=== PATIENT | male | born 1980 | race Hispanic/Latino ===

== ENCOUNTER 2020-01-12 16:08 | Emergency (ER) | payer SELFPAY ==
[~2020-01-12] VITALS: Ht 170.2 cm; Wt 88.0 kg
--- NOTE | 2020-01-12 16:31 | Emergency Department Note ---
History of Present Illnes History of Present Illness Chief Complaint: Chest Pain History of Present Illness This is a 39 year old male arrives to the ED with complaints of a cough . Patient states he is awaiting his Covid 19 resolved and came to the ER because he wanted to be retested. Patient does admit to subjective fevers cough and has been out of side without a mask. Onset (how long ago): day(s) ( ) Severity: mild Onset quality: gradual Duration (how long): day(s) Timing of current episode: constant Progression: waxing and waning Chronicity: new Context: Reports recent illness Past Medical/Family History Physician Review I have reviewed the patient's past medical and family history. Any updates have been documented here. Past Medical History Recent Fever: Yes Clinical Suspicion of Infectio: Yes New/Unexplained Change in Ment: No Past Medical History: None Past Surgical History: None Social History Smoking Cessation: Current some day smoker Counseling Performed: Yes Review of Systems Review of Systems Constitutional: Reports as per HPI, Reports chills, Reports fever EENTM: Reports no symptoms Cardiovascular: Reports no symptoms Respiratory: Reports as per HPI, Reports chest congestion, Reports cough Gastrointestinal: Reports no symptoms Genitourinary: Reports no symptoms Musculoskeletal: Reports no symptoms Integumentary: Reports no symptoms Neurological: Reports no symptoms Psychological: Reports no symptoms Endocrine: Reports no symptoms Hematological/Lymphatic: Reports no symptoms Physical Exam Related Data Vital signs reviewed: Yes Physical Exam CONSTITUTIONAL Constitutional: Present well-developed, Present well-nourished HENT HENT: Present normocephalic, Present atraumatic, Present oropharynx clear/moist, Present nose normal HENT L/R: Present left ext ear normal, Present right ext ear normal EYES Eyes: Reports PERRL, Reports conjunctivae normal NECK Neck: Present ROM normal PULMONARY Pulmonary: Present effort normal, Present breath sounds normal CARDIOVASCULAR Cardiovascular: Present regular rhythm, Present heart sounds normal, Present capillary refill normal, Present normal rate GASTROINTESTINAL Abdominal: Present soft, Present nontender, Present bowel sounds normal GENITOURINARY Genitourinary: Present exam deferred SKIN Skin: Present warm, Present dry MUSCULOSKELETAL Musculoskeletal: Present ROM normal NEUROLOGICAL Neurological: Present alert, Present oriented x 3, Present no gross motor or sensory deficits PSYCHOLOGICAL Psychological: Present mood/affect normal, Present judgement normal Assessment & Plan Assessment & Plan Final Impression: (1) Viral syndrome (2) Upper respiratory infection SOWMYA MAURICIO DO Jan 12, 2020 16:31
--- NOTE | 2020-01-12 16:51 | Diagnostic Imaging Report ---
EXAMINATION: CHEST SINGLE (PORTABLE) INDICATION: Shortness of breath, COVID positive COMPARISON: None FINDINGS: AP view TUBES and LINES: None. LUNGS: Low lung volumes. Subtle airspace opacities of the left lung and bilateral lung bases. PLEURA: No pleural effusion or pneumothorax. HEART AND MEDIASTINUM: The cardiomediastinal silhouette is unremarkable. BONES AND SOFT TISSUES: No acute osseous lesion. Soft tissues are unremarkable. UPPER ABDOMEN: No free air under the diaphragm. IMPRESSION: Subtle airspace opacities of the lower lungs consistent with provided history of viral pneumonia. Signed by: Wayne Rea MD on 01/12/2020 4:48 PM
[2020-01-12] MEDS ORDERED: AZITHROMYCIN250 MG PO (17:10)
== END 2020-01-12 17:22 | disposition home or self-care (01) ==
LOC: ER 16:08
DX: R05 Cough (principal); B34.9 Viral infection, unspecified; J06.9 Acute upper respiratory infection, unspecified
CPT/HCPCS: 71045; 93005; 99284

== ENCOUNTER 2020-07-09 12:34 | Emergency (ER) | payer OTHER ==
[~2020-07-09] VITALS: Ht 170.2 cm; Wt 88.0 kg
[~2020-07-09 12:34] MED LIST: AZITHROMYCIN250 MG PO
== END 2020-07-09 13:04 | disposition home or self-care (01) ==
LOC: ER 12:57
DX: J40 Bronchitis, not specified as acute or chronic (principal); R05 Cough; R51.9 Headache, unspecified
CPT/HCPCS: 99282